=== PATIENT | female | born 1975 | race Caucasian/White ===

== ENCOUNTER 2021-02-21 10:57 | Emergency (ER) | payer OTHER, BC ==
[2021-02-21] MEDS ORDERED: Ketorolac 60 MG/2 ML SDV IM ONE (11:19)
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
--- NOTE | 2021-02-21 12:17 | CR ---
Left ankle: 4 views of the left ankle were obtained. Comparison: No prior ankle study is available. Small plantar spur is noted. Several small calcifications are noted between the medial malleolus and talus which are felt compatible with old injury. Soft tissue swelling is noted. No fracture, dislocation or other bony abnormality is appreciated. Impression: 1. Findings as noted above. 2. No acute bony abnormality is seen. Diagnostic code #2
== END 2021-02-21 12:10 | disposition home or self-care (01) ==
LOC: JD.ED 10:57
DX: S99.912A Unspecified injury of left ankle, initial encounter (principal); X50.1XXA Overexertion from prolonged static or awkward postures, initial encounter; Y92.410 Unspecified street and highway as the place of occurrence of the external cause
CPT/HCPCS: 29580; 73610-26-LT; 73610-LT; 96372; 99283; J1885